=== PATIENT | male | born 1975 ===

== ENCOUNTER 2018-04-26 11:49 | Emergency (ER) | payer MEDICAID ==
[2018-04-26 11:49] VITALS: BMI 25.7
[2018-04-26 12:14] VITALS: O2SAT 100
--- NOTE | 2018-04-26 12:33 | ED PDOC ---
HPI: Abdomen Time Seen by Provider: 04/26/18 12:08 Chief Complaint (Nursing): Abdominal Pain History Per: Patient History/Exam Limitations: no limitations Onset/Duration Of Symptoms: Days Outside of [place] travel?: No Current Symptoms Are (Timing): Still Present Severity: Moderate Pain Scale Rating Of: 7 Location Of Pain/Discomfort: LUQ, LLQ Quality Of Discomfort: Aching Associated Symptoms: Nausea. denies: Fever, Chills Exacerbating Factors: Movement Alleviating Factors: Rest Last Bowel Movement: Today Additional Complaint(s): 42 YO Male with PMHx of low back pain, sciatica presents to [facility] ED for abdominal pain. Pt states that on Thursday he lifted his granddaughter (60lbs) and a few mins after he put her down he started having a left sided abdominal pain. There minimal radiation of the pain to the groin area, associated symptom includes nausea. Pt states he used local lidocaine patches, and Tylenol 3 for the pain, with little relief. No episode of emesis, fever, chills, normal BM this AM and no urinary symptoms. PMHx: low back pain, sciatica SurgHx: denies SH: , 20+pack year hx, denies ETOH (hx of ETOH use) and denies illicit drug use FH: hx of DM, CAD and HTN Allergies: percocet --rash and nausea Meds: Tylenol 3, lidocaine patch Past Medical History Vital Signs: Last Vital Signs Temp 98.1 F 04/26/18 14:26 Pulse 87 04/26/18 14:26 Resp 16 04/26/18 14:26 BP 127/77 04/26/18 14:26 Pulse Ox 100 04/26/18 14:26 - Medical History PMH: Back Problems - Surgical History Surgical History: No Surg Hx - Family History Family History: States: [place], CAD, Diabetes, Hypertension - Living Arrangements Living Arrangements: With Family - Social History Current smoker - smoking cessation education provided: Yes Alcohol: None Drugs: Denies - Immunization History Hx Tetanus Toxoid Vaccination: Yes (3yrs ago) - Home Medications Home Medications: Ambulatory Orders Medication Instructions Recorded Cyclobenzaprine [Cyclobenzaprine 10 mg PO TID #10 tab 04/26/18 HCl] - Allergies Allergies/Adverse Reactions: Allergies Allergy/AdvReac Type Severity Reaction Status Date / Time acetaminophen [From Percocet] Allergy ITCHING Verified 04/26/18 12:11 oxycodone [From Percocet] Allergy ITCHING Verified 04/26/18 12:11 Review of Systems Constitutional: Negative for: Fever, Chills Cardiovascular: Negative for: Chest Pain, Palpitations Respiratory: Negative for: Cough, Shortness of Breath Gastrointestinal: Positive for: Nausea, Abdominal Pain. Negative for: Vomiting , Diarrhea, Constipation, Rectal Pain Genitourinary Male: Negative for: Dysuria, Frequency, Hematuria Musculoskeletal: Negative for: Neck Pain, Shoulder Pain Neurological: Negative for: Weakness, Numbness Physical Exam - Physical Exam Appears: Positive for: Uncomfortable Skin: Positive for: Normal Color. Negative for: Diaphoresis, Pallor Eye Exam: Positive for: Normal appearance Cardiovascular/Chest: Positive for: Regular Rate, Rhythm. Negative for: Murmur Respiratory: Positive for: Normal Breath Sounds. Negative for: Crackles, Wheezing Gastrointestinal/Abdominal: Positive for: Normal Exam, Bowel Sounds, Soft, Tenderness (tenderness to palpation of the L rectus abdominus muscle. No erythema or edema. ) Male Genital Exam: Positive for: normal genitalia, normal prostate. Negative for: no hernia, epididymal tenderness, hernia mass, inguinal tenderness Back: Positive for: Normal Inspection Extremity: Positive for: Normal ROM. Negative for: Tenderness, Pedal Edema Neurologic/Psych: Positive for: Alert - ECG O2 Sat by Pulse Oximetry: 100 - Progress ED Course And Treament: 42 YO male with abdominal pain, likely 2/2 to muscle strain. -cyclobenzaprine 10mg -Zofran for nausea 14:05--Pt seen and re-evaluated Pt states that his pain has improved after med and nausea resolved at this time. Will d/c pt home with follow up in [facility] and [facility] Disposition - Clinical Impression Clinical Impression: Muscle strain - Disposition Referrals: [facility] [Outside] Disposition Time: 14:15 Condition: FAIR Prescriptions: Cyclobenzaprine [Cyclobenzaprine HCl] 10 mg PO TID #10 tab Instructions: Muscle Strain Forms: [facility] (Kyrgyz)
[2018-04-26 14:27] VITALS: BP 127/77; PULSE 87; RESP 16; TEMP 98.1
== END 2018-04-26 14:25 | disposition home or self-care (01) ==
LOC: H.ER 11:49
DX: S39.011A Strain of muscle, fascia and tendon of abdomen, initial encounter (principal); F17.200 Nicotine dependence, unspecified, uncomplicated; Z82.49 Family history of ischemic heart disease and other diseases of the circulatory system; Z88.5 Allergy status to narcotic agent

== ENCOUNTER 2018-10-07 09:33 | Emergency (ER) | payer MEDICAID ==
[2018-10-07 09:43] VITALS: O2SAT 97; BMI 24.7
[2018-10-07] MEDS ORDERED: Albuterol-Ipratrop 3 mg / 0.5 (3 ml) UD IH STA (09:58)
--- NOTE | 2018-10-07 10:13 | ED PDOC ---
HPI: CCC, URI, Sore Throat Time Seen by Provider: 10/07/18 09:51 Chief Complaint (Nursing): Flu-like Symptoms Chief Complaint (Provider): Flu-like Symptoms History Per: Patient History/Exam Limitations: no limitations Onset/Duration Of Symptoms: Days (x1) Current Symptoms Are (Timing): Still Present Additional Complaint(s): 43 year old male with pmHx of bipolar disorder, bronchitis, and arthritis, presents to ED with a complaint of cough associated with productive yellow phlegm, nasal congestion, headache since 2330 last night. He reports using his nebulizer treatments with minimal relief. Otherwise, he denies any fever, chills, runny nose, nausea, vomiting, or diarrhea. PCP: none provided Past Medical History Reviewed: Historical Data, Nursing Documentation, Vital Signs Vital Signs: Last Vital Signs Temp 100.1 F H 10/07/18 09:42 Pulse 89 10/07/18 09:42 Resp BP 135/78 10/07/18 09:42 Pulse Ox 97 10/07/18 09:42 - Medical History PMH: Arthritis, Asthma ([place]ron[employer]), Back Problems, Bipolar Disorder Denies: Chronic Kidney Disease - Family History Family History: States: Unknown Family Hx - Immunization History Hx Tetanus Toxoid Vaccination: Yes (3yrs ago) - Home Medications Home Medications: Ambulatory Orders Medication Instructions Recorded Cyclobenzaprine [Cyclobenzaprine 10 mg PO TID #10 tab 04/26/18 HCl] Albuterol Sulfate [Proair Hfa] 0.09 mg IH Q6H PRN #2 inh 10/07/18 Benzonatate [Tessalon Perles] 100 mg PO BID PRN 5 Days sgl 10/07/18 Ibuprofen [Motrin] 600 mg PO TID 7 Days tab 10/07/18 predniSONE [predniSONE Tab] 20 mg PO BID 5 Days tab 10/07/18 - Allergies Allergies/Adverse Reactions: Allergies Allergy/AdvReac Type Severity Reaction Status Date / Time acetaminophen [From Percocet] Allergy ITCHING Verified 04/26/18 12:11 oxycodone [From Percocet] Allergy ITCHING Verified 04/26/18 12:11 Review of Systems ROS Statement: Except As Marked, All Systems Reviewed And Found Negative Constitutional: Negative for: Fever, Chills ENT: Positive for: Nose Congestion. Negative for: Nose Discharge Respiratory: Positive for: Cough, Sputum (yellow) Gastrointestinal: Negative for: Nausea, Vomiting, Diarrhea Neurological: Positive for: Headache (not worst in her life. ). Negative for: Weakness, Numbness Physical Exam - Reviewed Nursing Documentation Reviewed: Yes Vital Signs Reviewed: Yes - Physical Exam Appears: Positive for: No Acute Distress Head Exam: Positive for: ATRAUMATIC, NORMAL INSPECTION, NORMOCEPHALIC Skin: Positive for: Normal Color Eye Exam: Positive for: Normal appearance, EOMI, PERRL ENT: Positive for: Normal ENT Inspection. Negative for: Pharyngeal Erythema, Tonsillar Swelling Neck: Positive for: Normal, Supple Cardiovascular/Chest: Positive for: Regular Rate, Rhythm, Chest Non Tender Respiratory: Positive for: Wheezing (diffuse bilaterally on end expiration). Negative for: Respiratory Distress Back: Positive for: Normal Inspection. Negative for: L CVA Tenderness, R CVA Tenderness Extremity: Positive for: Normal ROM. Negative for: Tenderness, Pedal Edema (bilaterally), Capillary Refill (< 2 seconds to upper/lower bilaterally) Neurologic/Psych: Positive for: Alert, Oriented. Negative for: Motor/Sensory Deficits - Laboratory Results Interpretation Of Abn Labs: flu neg - ECG O2 Sat by Pulse Oximetry: 97 (RA) Pulse Ox Interpretation: Normal - Progress ED Course And Treament: 1148: Stable. AAOx3. Pain free. Tolerated PO. Fu with pcp. Medical Decision Making Medical Decision Making: Time: 957 Initial Plan: * Duoneb 3ml INH * Motrin 600mg PO * Tessalon Perles 100mg PO * Prednisone 60mg PO * Influenza AB Time: 1130 --Negative for flu. Scribe Attestation: Documented by Marisela Bullard, acting as a scribe for Ottoniel Miles MD. Provider Scribe Attestation: All medical record entries made by the Scribe were at my direction and personally dictated by me. I have reviewed the chart and agree that the record accurately reflects my personal performance of the history, physical exam, medical decision making, and the department course for this patient. I have also personally directed, reviewed, and agree with the discharge instructions and disposition. Disposition - Clinical Impression Clinical Impression: URI (upper respiratory infection) - Patient ED Disposition Is Patient to be Admitted: No Counseled Patient/Family Regarding: Studies Performed, Diagnosis, Need For Followup, Rx Given - Disposition Referrals: [facility] [Outside] - 10/11/18 Disposition: Routine/Home Disposition Time: 11:49 Condition: STABLE Additional Instructions: Return if not better in 3 days. Prescriptions: Albuterol Sulfate [Proair Hfa] 0.09 mg IH Q6H PRN #2 inh PRN Reason: Wheezing Benzonatate [Tessalon Perles] 100 mg PO BID PRN 5 Days sgl PRN Reason: Cough Ibuprofen [Motrin] 600 mg PO TID 7 Days tab predniSONE [predniSONE Tab] 20 mg PO BID 5 Days tab Instructions: Viral Upper Respiratory Infection, Adult (DC) Forms: [employer] (Honduran), [facility] ED School/Work Excuse
[2018-10-07] MEDS ORDERED: Albuterol-Ipratrop 3 mg / 0.5 (3 ml) UD ONE (10:37)
[2018-10-07 12:01] VITALS: TEMP 99.1
[2018-10-07 12:11] VITALS: BP 126/69; PULSE 95; RESP 17
== END 2018-10-07 12:09 | disposition home or self-care (01) ==
LOC: H.ER 09:33
DX: J06.9 Acute upper respiratory infection, unspecified (principal); R06.2 Wheezing; Z79.899 Other long term (current) drug therapy; Z88.5 Allergy status to narcotic agent